=== PATIENT | female | born 1995 | race Caucasian/White ===

== ENCOUNTER 2024-02-06 19:42 | Emergency (ER) | payer BC, OTHER ==
[~2024-02-06] VITALS: Ht 157.5 cm; Wt 50.0 kg
[2024-02-06 19:57] VITALS: O2SAT 98
[2024-02-06] MEDS ORDERED: ACETAMINOPHEN 325MG TABLET PO ONE (20:45)
[2024-02-06] MEDS: WATER FOR IRRIGATION,STERILE 500 ML IRRIG.SOLN IR NR (20:45)
[2024-02-06] MEDS ORDERED: TETANUS, DIPHTHERIA, PERTUSSIS VAC/PF 0.5ML (>10YR OLD) IM ONE (20:45)
[2024-02-06] MEDS: ACETAMINOPHEN 325MG TABLET PO NR (21:15)
[2024-02-06] MEDS: TETANUS, DIPHTHERIA, PERTUSSIS VAC/PF 0.5ML (>10YR OLD) IM ONE (21:33)
[2024-02-06] MEDS: KETOROLAC 15MG/ML VIAL IM ONE (23:17)
[2024-02-06] MEDS: LORAZEPAM 1MG TABLET PO ONE (23:17)
[2024-02-07] MEDS ORDERED: LIDOCAINE HCL/EPINEPHRINE 1%-EPI 1:100,000 50 ML VIAL INFIL ONE
[2024-02-07] MEDS ORDERED: LIDOCAINE HCL/EPINEPHRINE 1%-EPI 1:100,000 20 ML VIAL INFIL NR (00:15)
[2024-02-07] MEDS ORDERED: METH-653 MT (00:54)
[2024-02-07 01:09] VITALS: BP 104/66; PULSE 100; RESP 18; TEMP 98.7
[2024-02-07] MEDS ORDERED: TOPUD PO (09:22)
== END 2024-02-07 01:15 | disposition home or self-care (01) ==
LOC: ER 19:42
DX: S01.511A Laceration without foreign body of lip, initial encounter (principal); F41.9 Anxiety disorder, unspecified; F32.A Depression, unspecified; V98.8XXA Other specified transport accidents, initial encounter; Y93.89 Activity, other specified; Y92.89 Other specified places as the place of occurrence of the external cause; Y99.8 Other external cause status
CPT/HCPCS: 99285; 40650; 70450; 81025; 71101; 70486; 90715; 90471; 96372; J1885; J3490

== ENCOUNTER 2024-02-07 06:36 | Emergency (ER) | payer OTHER ==
[~2024-02-07] VITALS: Ht 162.6 cm; Wt 60.0 kg
[~2024-02-07 06:36] MED LIST: METH-653 MT
[2024-02-07 07:02] VITALS: O2SAT 99
[2024-02-07] MEDS ORDERED: TOPUD PO (09:22)
[2024-02-07] MEDS: ACETAMINOPHEN 325MG TABLET PO ONE (09:32)
[2024-02-07 09:37] VITALS: BP 107/78; PULSE 90; RESP 18; TEMP 98.7
== END 2024-02-07 09:50 | disposition home or self-care (01) ==
LOC: ER 06:36
DX: R10.9 Unspecified abdominal pain (principal); F41.9 Anxiety disorder, unspecified; F32.A Depression, unspecified
CPT/HCPCS: 76770; 99284